=== PATIENT | female | born 1995 | race Caucasian/White ===

== ENCOUNTER 2019-11-01 16:47 | Emergency (ER) | payer MEDICAID, OTHER ==
[~2019-11-01] VITALS: Ht 167.6 cm; Wt 84.1 kg
[2019-11-01 16:50] VITALS: BP 134/97
[2019-11-01] MEDS ORDERED: FLUT16SP2 BOTHNARES (17:20)
== END 2019-11-01 17:51 | disposition home or self-care (01) ==
LOC: ER 16:48
DX: R51 Headache (principal); R20.2 Paresthesia of skin; R43.8 Other disturbances of smell and taste; Z20.828 Contact with and (suspected) exposure to other viral communicable diseases; Z79.899 Other long term (current) drug therapy
CPT/HCPCS: 36415; 99283; U0003

== ENCOUNTER 2023-08-16 16:21 | Emergency (ER) | payer MEDICAID, OTHER ==
[~2023-08-16] VITALS: Ht 170.2 cm; Wt 77.3 kg
[~2023-08-16 16:21] MED LIST: FLUT16SP2 BOTHNARES
[2023-08-16 16:30] VITALS: BP 162/141; PULSE 78; RESP 18; TEMP 98.6; O2SAT 98
== END 2023-08-16 17:30 | disposition left against medical advice (07) ==
LOC: ER 16:22
DX: R10.9 Unspecified abdominal pain (principal); R11.2 Nausea with vomiting, unspecified; R07.89 Other chest pain; Z53.21 Procedure and treatment not carried out due to patient leaving prior to being seen by health care provider
CPT/HCPCS: 93005; 99281